=== PATIENT | female | born 1975 | race Two or more races ===

== ENCOUNTER 2025-01-08 08:23 | Day surgery (SDC) | payer MEDICAID ==
[2024-12-31 12:33] LABS: Basophils # (auto) 0.1 10 ^3/uL (0-0.2); Hemoglobin 12.4 g/dL (12.2-16.2); Monocytes # (auto) 0.5 10 ^3/uL (0-1.3); White Blood Cell 7.4 10^3/uL (4.4-10.8)
[2024-12-31 12:34] LABS: Basophils % (auto) 0.7 % (0.0-2.0); Eosinophils # (auto) 0.1 10 ^3/uL (0-0.8); Eosinophils % (auto) 1.8 % (0.0-7.0); Lymphocytes # (auto) 1.6 10 ^3/uL (0.4-5.4); Lymphocytes % (auto) 22.4 % (10.0-50.0); Mean Corpuscular Hemoglobin 26.5 pg (28.0-32.0); Mean Corpuscular Hgb Conc. 32.5 g/dL (32.0-36.0); Mean Corpuscular Volume 81.4 fL (80.0-100.0); Monocytes % (auto) 6.6 % (0.0-12.0); Neutrophils % (auto) 68.5 % (37.0-80.0); Nucleated Red Blood Cells % 0.2 %; Platelet Count (auto) 201 10^3/uL (140-450); Red Blood Cells 4.67 10^6/uL (4.0-5.20); Red Cell Distribution Width 15.4 % (11.8-14.3)
[2024-12-31 12:38] LABS: Urine Clarity Turbid (Clear); Urine Color Colorless (Yellow)
[2024-12-31 12:39] LABS: Urine Bacteria FEW /hpf (None Seen); Urine Blood 3+ /uL (Negative); Urine Protein, UAD 1+ (Negative); Urine Specific Gravity 1.007 (1.001-1.035); Urine Squamous Epithelial Cell FEW /hpf (<5); Urine Urobilinogen Normal (Negative); Urine WBC 97 /HPF (0-5)
[2024-12-31 12:49] LABS: Albumin 4.7 g/dL (3.2-4.8); Alkaline Phosphatase 83 U/L (46-116); Anion Gap 8 (5-15); BUN/Creatinine Ratio 12.1 (10.0-20.0); Blood Urea Nitrogen 11 mg/dL (9-23); Calcium 10.1 mg/dL (8.7-10.4); Carbon Dioxide 27 mmol/L (20-31); Chloride 106 mmol/L (98-107); Glucose 89 mg/dL (74-106); Potassium 3.9 mmol/L (3.5-5.1); Sodium 141 mmol/L (136-145); Total Protein 7.3 g/dL (5.7-8.2)
[2024-12-31 12:50] LABS: Alanine Aminotransferase 9 U/L (7-40); Aspartate Aminotransferase 10 U/L (13-40); Bilirubin, Total 0.3 mg/dL (0.2-1.0)
[2024-12-31 12:51] LABS: INR 0.98 (0.9-1.15); Partial Thromboplastin Time 31.1 SEC (24.5-34.5); Prothrombin Time 10.4 sec (9.3-11.8)
[~2025-01-08] VITALS: Ht 160 cm; Wt 95.3 kg
[~2025-01-08 08:23] MED LIST: LISI10TA34 PO
--- NOTE | 2025-01-08 09:54 | DVHOP2 ---
Operative Report - 2 Report Details Date: 01/08/25 Preop Diagnosis: 1. Right foot plantar fasciitis 2. Right bone spur 3. Right foot pain Postop Diagnosis: Same as preop Surgeon: Elliot Ellsworth MD Anesthesiologist: See anesthesia Anesthesia: Mac Consent: The patient was informed of the risks and benefits of the procedure. These include but are not limited to complications of anesthesia, postoperative infection, incomplete relief of symptoms, recurrence of symptoms, damage to blood vessels, nerves and tendons, deep venous thrombosis, pulmonary embolism and possible need for repeat surgery in the future. Complications: None Estimated Blood Loss: Minimal Fluids: See anesthesia Findings: Consistent with diagnosis Indications for Surgery: Worsening right foot pain Name of Procedure Performed 1. Right foot plantar fasciotomy with tenex (59295) 2. Right foot calcaneal bone spur excision (23526) Procedure Details Procedure Details: PRE-PROCEDURE INFORMATION: In the pre-op holding area, the extremity to be operated on was clearly marked and the patient verified correct laterality of the marking. The patient was transferred to the OR table and placed in a supine position. A timeout was performed in which identification of the correct patient, procedure, location, and materials was done. The right foot and leg were prepped and draped in normal sterile fashion. DESCRIPTION OF PROCEDURE: Attention was directed to the right medial aspect of the heel. Using a 15. Blade, a small stab incision was made. Using a hemostat the incision was deepened to the level of the plantar fascia and bone. Using a Tenex device, and ultrasound, the device was used to break up the scar tissue. After adequate debridement of the plantar fascia, it was noted on ultrasound that the thickness of the plantar fascia had improved. At this point, a power rasp was then inserted into the same incision. The rasp was used to shave down the medial and lateral bone spur. After the bone spur was adequately resected, the incision was closed with 4-0 nylon. All surgical wounds were irrigated copiously with saline and closed in layers with the aforementioned suture material. A dry sterile dressing was placed on the surgical extremity. The patient was placed in a postop shoe POSTOPERATIVE INFORMATION: The patient tolerated the above noted procedure and anesthesia well and was transferred to the PACU with vital signs stable, and vascular status intact with capillary refill intact to all digits. Postoperative instructions reviewed in detail with the patient with written instructions prov ided. Patient will return to clinic in approximately 10-14 days for first postoperative visit. Patient has the number of the clinic and was instructed to call prior to that time should any problems, questions, or concerns arise. Condition Good Disposition Home ELLIOT ELLSWORTH DPM Jan 08, 2025 09:54
[2025-01-08] MEDS ORDERED: fentaNYL CITRATE 100 MCG/2 ML VL ONE (10:25)
[2025-01-08] MEDS ORDERED: MIDAZOLAM HCL 2MG/2ML 2ml VIAL (1mg/ml) ONE (10:25)
[2025-01-08] MEDS: LIDOCAINE 1% HCL (LOCAL ANESTH.) INJ 20ML MDV ONE (10:30)
[2025-01-08] MEDS: CLINDAMYCIN 600MG IV 50 ML IV ONE (10:30)
[2025-01-08] MEDS ORDERED: PROPOFOL 10 MG/ML 20 ML IV ONE (10:32)
[2025-01-08] MEDS ORDERED: DexAMETHasone SOD PHOS 10MG/1ML VIAL INJ ONE (10:32)
[2025-01-08 10:45] VITALS: TEMP 97.5; O2SAT 96
[2025-01-08] MEDS ORDERED: HYDROmorphone HCL 2 MG/ML VL/or syr IV PRN (11:00)
[2025-01-08] MEDS ORDERED: ePHEDrine SULFATE 50 MG/ML AMP IV PRN (11:00)
[2025-01-08] MEDS ORDERED: hydrALAZINE HCL 20 MG/ML VL IV PRN (11:00)
[2025-01-08] MEDS ORDERED: MORPHINE SULFATE 4 MG/ML SYR/VIAL IV PRN (11:00)
[2025-01-08] MEDS ORDERED: MIDAZOLAM HCL 2MG/2ML 2ml VIAL (1mg/ml) IV PRN (11:00)
[2025-01-08] MEDS ORDERED: ONDANSETRON HCL 4 MG/2 ML VIAL IV ONE (11:00)
[2025-01-08 11:27] VITALS: BP 122/73; PULSE 67; RESP 12; O2SAT 97
== END 2025-01-08 11:45 | disposition home or self-care (01) ==
LOC: SUR 08:23
PROVIDERS: ATTEND Podiatrist
DX: M72.2 Plantar fascial fibromatosis (principal); M77.31 Calcaneal spur, right foot; I10 Essential (primary) hypertension; E66.01 Morbid (severe) obesity due to excess calories; Z88.0 Allergy status to penicillin; Z98.891 History of uterine scar from previous surgery; Z68.38 Body mass index [BMI] 38.0-38.9, adult; Z79.899 Other long term (current) drug therapy
CPT/HCPCS: 28119; 28899; 36415; 80053; 81001; 84702; 85025; 85610; 85730; J1100; J2003; J2250; J2704; J3010; J3490